=== PATIENT | female | born 1955 | race American Indian/Alaskan Native ===

== ENCOUNTER 2017-01-03 13:19 | Emergency (ER) | payer OTHER ==
[2017-01-03 15:16] LABS: Anion Gap 17 mmol/L; BUN/Creatinine Ratio 14.28; Blood Urea Nitrogen 10 mg/dL (7-17); Calcium 8.8 mg/dL (8.4-10.2); Carbon Dioxide 24 mmol/L (22-30); Chloride 101.8 mmol/L (98-107); Glucose 110 mg/dL (65-100); Potassium 3.8 mmol/L (3.6-5.0); Sodium 139 mmol/L (137-145)
[2017-01-03 15:29] LABS: Eosinophils % (Auto) 0.5 % (0.0-4.3); Hematocrit 39.8 % (30.3-42.9); Hemoglobin 13.2 gm/dl (10.1-14.3); Mean Corpuscular HGB Conc 33 % (30-34); Mean Corpuscular Hemoglobin 30 pg (28-32); Mean Corpuscular Volume 92 fl (79-97); Platelet Count 253 K/mm3 (140-440); Red Blood Count 4.35 M/mm3 (3.65-5.03); Red Cell Distribution Width 14.9 % (13.2-15.2); White Blood Count 10.3 K/mm3 (4.5-11.0)
[2017-01-03 15:57] LABS: INR 1.01 (0.87-1.13)
[2017-01-03 15:58] LABS: Partial Thromboplastin Time 30.3 Sec. (24.2-36.6)
[2017-01-03 16:35] VITALS: BP 113/72
[2017-01-03] MEDS ORDERED: ASPIRIN PO ONE (17:48)
--- NOTE | 2017-01-03 17:53 | Emergency Department Report ---
HPI - General Chief Complaint: Chest Pain Time Seen by Provider: 01/03/17 16:45 - HPI HPI: Room 1 The patient is a 61-year-old female presenting with a chief complaint of chest pain. The patient states today while watching television she had onset of substernal chest pain that felt consistent with her previous [place]. Patient discussed pain as dull in nature. Patient complained of bilateral Petrilli pressure. Patient states her chest pain was associated with shortness of breath and nausea but denies vomiting. Patient is uncertain if she became diaphoretic. Patient took a sublingual nitroglycerin but it did not help immediately. EMS was called and the patient was transported to the ED. Patient states the chest pain has decreased and she currently gives it a score of 1/10. The patient states her last cardiac catheterization occurred in 2012 when she had a cardiac stent placed Location: Chest, see above Duration: hours Quality: Dull Severity: 1/10 Modifying factors: [see above] Context: [see above] Mode of transportation: [not driving] ED Past Medical Hx - Past Medical History Previous Medical History?: Yes Hx Hypertension: Yes Hx Heart Attack/AMI: Yes (2012) - Surgical History Past Surgical History?: Yes Hx Coronary Stent: Yes - Family History Family history: no significant - Social History Smoking Status: Current Some Day Smoker Substance Use Type: Alcohol ED Review of Systems ROS: Stated complaint: CHEST PAIN Other details as noted in HPI Comment: All other systems reviewed and negative Constitutional: denies: chills, fever Eyes: denies: eye pain, eye discharge, vision change ENT: denies: ear pain, throat pain Respiratory: shortness of breath Cardiovascular: chest pain Endocrine: no symptoms reported Gastrointestinal: nausea. denies: vomiting Genitourinary: denies: urgency, dysuria, discharge Musculoskeletal: denies: back pain, joint swelling, arthralgia Skin: denies: rash, lesions Neurological: denies: headache, weakness, paresthesias Psychiatric: denies: anxiety, depression Hematological/Lymphatic: denies: easy bleeding, easy bruising Physical Exam - Physical Exam Vital Signs: Vital Signs 01/03/17 01/03/17 01/03/17 14:08 14:15 14:20 Pulse Rate 59 L Respiratory 12 Rate Blood Pressure 114/75 114/75 O2 Sat by Pulse 99 Oximetry 01/03/17 01/03/17 01/03/17 14:30 14:40 14:50 Pulse Rate 55 L 55 L 53 L Respiratory 11 L 12 16 Rate Blood Pressure 114/75 114/75 109/74 O2 Sat by Pulse Oximetry 01/03/17 01/03/17 01/03/17 15:00 15:10 15:20 Pulse Rate 48 L 51 L 51 L Respiratory 11 L 12 10 L Rate Blood Pressure 113/72 113/72 113/72 O2 Sat by Pulse 100 99 Oximetry 01/03/17 01/03/17 01/03/17 15:29 15:30 15:40 Pulse Rate 53 L 51 L Respiratory 18 15 14 Rate Blood Pressure 113/72 113/72 O2 Sat by Pulse 100 99 99 Oximetry 01/03/17 01/03/17 01/03/17 15:50 16:00 16:10 Pulse Rate 50 L 49 L 51 L Respiratory 11 L 12 10 L Rate Blood Pressure 113/72 113/72 113/72 O2 Sat by Pulse 99 98 99 Oximetry 01/03/17 16:20 Pulse Rate 57 L Respiratory 13 Rate Blood Pressure 113/72 O2 Sat by Pulse 99 Oximetry Physical Exam: GENERAL: The patient is well-developed well-nourished female lying on stretcher not appear to be in acute distress. [] HEENT: Normocephalic. Atraumatic. Extraocular motions are intact. Patient has moist mucous membranes. NECK: Supple. Trachea midline CHEST/LUNGS: Clear to auscultation. There is no respiratory distress noted. HEART/CARDIOVASCULAR: Regular. There is no tachycardia. There is no gallop rub or murmur. ABDOMEN: Abdomen is soft, nontender. Patient has normal bowel sounds. There is no abdominal distention. SKIN: There is no rash. There is no edema. There is no diaphoresis. NEURO: The patient is awake, alert, and oriented. The patient is cooperative. The patient has normal speech MUSCULOSKELETAL:There is no evidence of acute injury. ED Course Vital Signs 01/03/17 01/03/17 01/03/17 14:08 14:15 14:20 Pulse Rate 59 L Respiratory 12 Rate Blood Pressure 114/75 114/75 O2 Sat by Pulse 99 Oximetry 01/03/17 01/03/17 01/03/17 14:30 14:40 14:50 Pulse Rate 55 L 55 L 53 L Respiratory 11 L 12 16 Rate Blood Pressure 114/75 114/75 109/74 O2 Sat by Pulse Oximetry 01/03/17 01/03/17 01/03/17 15:00 15:10 15:20 Pulse Rate 48 L 51 L 51 L Respiratory 11 L 12 10 L Rate Blood Pressure 113/72 113/72 113/72 O2 Sat by Pulse 100 99 Oximetry 01/03/17 01/03/17 01/03/17 15:29 15:30 15:40 Pulse Rate 53 L 51 L Respiratory 18 15 14 Rate Blood Pressure 113/72 113/72 O2 Sat by Pulse 100 99 99 Oximetry 01/03/17 01/03/17 01/03/17 15:50 16:00 16:10 Pulse Rate 50 L 49 L 51 L Respiratory 11 L 12 10 L Rate Blood Pressure 113/72 113/72 113/72 O2 Sat by Pulse 99 98 99 Oximetry 01/03/17 16:20 Pulse Rate 57 L Respiratory 13 Rate Blood Pressure 113/72 O2 Sat by Pulse 99 Oximetry ED Medical Decision Making - Lab Data Result diagrams: 01/03/17 14:34 01/03/17 14:34 Laboratory Tests 01/03/17 01/03/17 01/03/17 14:34 14:34 14:34 WBC 10.3 RBC 4.35 Hgb 13.2 Hct 39.8 MCV 92 MCH 30 MCHC 33 RDW 14.9 Plt Count 253 Lymph % (Auto) 34.9 [place] % (Auto) 5.4 Eos % (Auto) 0.5 Baso % (Auto) 1.0 Lymph # 3.6 [place] # 0.6 Eos # 0.1 Baso # 0.1 Seg Neutrophils % 58.2 Seg Neutrophils # 6.0 PT 13.2 INR 1.01 APTT 30.3 Sodium 139 Potassium 3.8 Chloride 101.8 Carbon Dioxide 24 Anion Gap 17 BUN 10 Creatinine 0.7 Estimated GFR > 60 BUN/Creatinine Ratio 14.28 Glucose 110 H Calcium 8.8 Troponin T 0.018 Triglycerides Cholesterol LDL Cholesterol Direct HDL Cholesterol Cholesterol/HDL Ratio 01/03/17 16:21 WBC RBC Hgb Hct MCV MCH MCHC RDW Plt Count Lymph % (Auto) [place] % (Auto) Eos % (Auto) Baso % (Auto) Lymph # [place] # Eos # Baso # Seg Neutrophils % Seg Neutrophils # PT INR APTT Sodium Potassium Chloride Carbon Dioxide Anion Gap BUN Creatinine Estimated GFR BUN/Creatinine Ratio Glucose Calcium Troponin T 0.058 H D Triglycerides 174 H Cholesterol 194 LDL Cholesterol Direct 115 HDL Cholesterol 45 Cholesterol/HDL Ratio 4.31 - EKG Data -: EKG Interpreted by Me EKG shows normal: sinus rhythm Rate: normal - EKG Data When compared to previous EKG there are: previous EKG unavailable Interpretation: nonspecific ST-T wave anitra (biphasic/T wave inversions in leads V2, V3) - Radiology Data Radiology results: image reviewed (chest x-ray) interpreted by me: Chest x-ray-no focal infiltrates, no pneumothorax - Medical Decision Making I discussed with the patient and family at length my concern for her chest pain given her history of previous [place], her presentation similar to previous [place], and her abnormal EKG (T wave inversions in V2, V3 without previous EKGs available for comparison). I explained to patient and family that set of normal cardiac enzymes does not preclude acute coronary syndrome. Patient and family verbalized understanding but she still desires to leave the hospital AGAINST MEDICAL ADVICE. Patient advised to return to the emergency department if she changes her mind. Critical care attestation.: If time is entered above; I have spent that time in minutes in the direct care of this critically ill patient, excluding procedure time. ED Disposition Clinical Impression: Chest pain, T wave inversion in EKG Disposition: LEFT AGAINST MEDICAL ADVICE Is pt being admited?: No Does the pt Need Aspirin: Yes Condition: Undetermined Instructions: Chest Pain (ED) Referrals: PRIMARY CARE, [Primary Care Provider] - 3-5 Days Forms: AMA Form Time of Disposition: 17:55 (patient leaving AMA)
--- NOTE | 2017-01-04 10:00 | XRay Report ---
PORTABLE CHEST INDICATION: Chest pain. COMPARISON: None similar at this institution. FINDINGS: Portable, frontal chest radiograph demonstrates normal cardiomediastinal silhouette and well-expanded lungs without pleural effusions or CHF. Mild bronchovascular prominence centrally. Left axillary surgical clips. Intact bones. EKG leads. CONCLUSION: No acute chest process with possible COPD and pulmonary arterial hypertension in an appropriate setting. Please correlate. Thank you for the opportunity to participate in this patient's care.
== END 2017-01-03 18:08 | disposition left against medical advice (07) ==
LOC: ED 13:19
DX: R07.2 Precordial pain (principal); R94.31 Abnormal electrocardiogram [ECG] [EKG]; I10 Essential (primary) hypertension; I25.2 Old myocardial infarction; F17.200 Nicotine dependence, unspecified, uncomplicated
CPT/HCPCS: 36415; 71010; 80048; 80061; 84484; 85025; 85610; 85730; 93005; 93010

== ENCOUNTER 2017-08-29 08:53 | Outpatient (CLI) | payer OTHER | END 2017-08-29 08:54 | disposition home or self-care (01) | LOC: PF 08:53 | PROVIDERS: ATTEND Internal Medicine | DX: I11.0 Hypertensive heart disease with heart failure (principal); I50.9 Heart failure, unspecified; J44.9 Chronic obstructive pulmonary disease, unspecified; M19.90 Unspecified osteoarthritis, unspecified site; F17.200 Nicotine dependence, unspecified, uncomplicated | CPT/HCPCS: 94010; 94729 ==

== ENCOUNTER 2018-12-03 13:50 | Outpatient (CLI) | payer OTHER ==
--- NOTE | 2018-12-05 08:13 | Mammography Report ---
RIGHT DIGITAL SCREENING MAMMOGRAM with CAD: 12/03/18 CLINICAL: Routine screening.Breast cancer survivor status post left mastectomy with TRAM reconstruction. COMPARISON:None available. However, a prior mammogram was apparently done at [facility]. FINDINGS: The breast is heterogeneously dense, which may obscure small masses. An inner density on the CC view requires comparison with a prior mammogram. IMPRESSION: Recommend comparison with any previous mammogram. BI-RADS CATEGORY: 0 -- Additional Evaluation Required We will attempt to obtain a prior mammogram for comparison. If we do not obtain a prior mammogram within 30 days, a revised report will be issued recommending a recall for additional imaging. Please be advised that the patient should not schedule an appointment for return until adequate time (at least 2 weeks) has passed for us to obtain the prior mammogram. ACR BI-RADS MAMMOGRAPHIC CODES: 0 = Needs additional imaging evaluation; 1 = Negative; 2 = Benign; 3 = Probably benign; 4 = Suspicious; 5 = Malignant; 6 = Known biopsy-proven malignancy COMMENT: 1. Dense breast tissue, i.e., adenosis, fibrocystic changes, etc., may obscure an underlying neoplasm. 2. Approximately 10% of cancers are not detected with mammography. 3. A negative mammography report should not delay biopsy if a clinically suspicious mass is present. COMMENT: Patient follow-up letters are generated via our [email or web address] application.
== END 2018-12-03 13:51 | disposition home or self-care (01) ==
LOC: MAMMO 13:50
PROVIDERS: ATTEND Internal Medicine
DX: Z12.31 Encounter for screening mammogram for malignant neoplasm of breast (principal)

== ENCOUNTER 2020-03-25 11:41 | Outpatient (CLI) | payer OTHER ==
--- NOTE | 2020-03-25 12:48 | Mammography Report ---
DIGITAL SCREENING MAMMOGRAM WITH CAD, 03/25/2020 INDICATION: Routine screening mammography. TECHNIQUE: Digital right 2D mammography was obtained in the craniocaudal and mediolateral oblique pr ojections. This examination was interpreted with the benefit of Computer-Aided Detection analysis. COMPARISON: 12/03/2018, 10/31/2017 FINDINGS: Breast Density: There are scattered areas of fibroglandular density. There is no evidence of dominant mass, suspicious calcifications or architectural distortion in the r ight breast. IMPRESSION: Follow up recommendation: Routine yearly BI-RADS Category 1: Negative. A "normal" or negative report should not discourage follow up or biopsy of a clinically significant f inding. A written summary of these findings will be mailed to the patient. The patient will be entered into a mammography reporting system which will generate a reminder letter for the patient's next appointmen t at the appropriate interval. The [employer] recommends yearly mammograms starting at age 40 and continuing as l avtar as a woman is in good health. Breast MRI is recommended for women with an approximate 20-25% or greater lifetime risk of breast cancer, including women with a strong family history of breast or ova josh cancer or who have been treated for Hodgkin's disease. Signer Name: Eliezer Mello MD Signed: 03/25/2020 12:43 PM Workstation Name: [id number]
== END 2020-03-25 11:42 | disposition home or self-care (01) ==
LOC: MAMMO 11:41
PROVIDERS: ATTEND Internal Medicine
DX: Z12.31 Encounter for screening mammogram for malignant neoplasm of breast (principal); N64.89 Other specified disorders of breast

== ENCOUNTER 2021-12-03 13:31 | Outpatient (CLI) | payer OTHER ==
--- NOTE | 2021-12-07 15:47 | Mammography Report ---
DIGITAL SCREENING MAMMOGRAM WITH CAD, 12/03/2021 CLINICAL INFORMATION / INDICATION: Routine screening TECHNIQUE: Digital right 2D mammography was obtained in the craniocaudal and mediolateral oblique pr ojections. This examination was interpreted with the benefit of Computer-Aided Detection analysis. COMPARISON: 03/25/2020 FINDINGS: Breast Density: The breasts are heterogeneously dense, which may obscure small masses. No dominant mass, suspicious calcifications, or architectural distortion in the right breast. IMPRESSION: No mammographic evidence of malignancy. Follow up recommendation: Routine yearly BI-RADS Category 1: NEGATIVE A "normal" or negative report should not discourage follow up or biopsy of a clinically significant f inding. A written summary of these findings will be mailed to the patient. The patient will be entered into a mammography reporting system which will generate a reminder letter for the patient's next appointmen t at the appropriate interval. The [employer] recommends yearly mammograms starting at age 40 and continuing as l avtar as a woman is in good health. Breast MRI is recommended for women with an approximate 20-25% or greater lifetime risk of breast cancer, including women with a strong family history of breast or ova josh cancer or who have been treated for Hodgkin's disease. Signer Name: Christopher Leung MD Signed: 12/07/2021 3:42 PM Workstation Name: [id number]
== END 2021-12-03 13:32 | disposition home or self-care (01) ==
LOC: MAMMO 13:31
PROVIDERS: ATTEND Internal Medicine
DX: Z12.31 Encounter for screening mammogram for malignant neoplasm of breast (principal)